=== PATIENT | female | born 1985 | race African-American/Black ===

== ENCOUNTER 2023-04-27 05:36 | Inpatient (IN) | payer BC, OTHER ==
[2023-04-27] MEDS ORDERED: Tranexamic Acid 1,000 MG/10 ML VIAL IVP PRN (06:59)
[2023-04-27] MEDS ORDERED: Butorphanol Tartrate 1 MG/ML VIAL SLOW IVP PRN (06:59)
[2023-04-27] MEDS ORDERED: Acetaminophen 500 MG TAB PO PRN (06:59)
[2023-04-27] MEDS ORDERED: Ibuprofen 800 MG TAB PO PRN (06:59)
[2023-04-27] MEDS ORDERED: Methylergonovine 0.2 MG/ML VIAL IM PRN (06:59)
[2023-04-27] MEDS ORDERED: Carboprost 250 MCG/ML AMP IM PRN (06:59)
[2023-04-27] MEDS ORDERED: HYDROcodone/Acetaminophen 5/325 mg Tablet PO PRN ×2 (06:59)
[2023-04-27] MEDS ORDERED: hydrALAZINE 20 MG/ML VIAL SLOW IVP PRN (06:59)
[2023-04-27] MEDS ORDERED: Promethazine HCl 25 MG/ML VIAL IM PRN (06:59)
[2023-04-27] MEDS ORDERED: Lidocaine 1% (PF) 30 ML VIAL SC PRN (06:59)
[2023-04-27] MEDS ORDERED: Misoprostol 200 MCG TAB PR PRN (06:59)
[2023-04-27] MEDS ORDERED: Diphenoxylate HCl/Atropine Tablet PO PRN ×2 (06:59)
[2023-04-27] MEDS ORDERED: Ondansetron PF 4 MG/2 ML Vial IVP PRN (06:59)
[2023-04-27] MEDS ORDERED: NS w/ Oxytocin 30 units 500 ML IV SCH ×3 (07:00)
[2023-04-27 08:19] LABS: Hemoglobin 10.7 g/dL (12.0-15.5); Mean Corpuscular HGB CONC 33.3 g/dL (32.0-36.0); Mean Corpuscular Hemoglobin 29.2 pg (27.0-33.0); Mean Corpuscular Volume 87.5 fl (81.6-98.3); Mean Platelet Volume 10.5 fl (7.4-10.4); Platelet Count 295 10x3/uL (150-450); Red Blood Cell (RBC) Count 3.67 10x6/uL (3.90-5.03); White Blood Cell (WBC) Count 5.1 10x3/uL (3.5-10.5)
[2023-04-27 08:47] LABS: HBSAg Index 0.14 S/CO (0-0.99); Hep B Surf Ag - L&D Non-Reactive S/CO (NonReactive)
[2023-04-27 08:48] LABS: Syphilis Antibody Nonreactive (Nonreactive); Syphilis Antibody Index 0.04 S/CO (<1.00 Non-Reactive)
[2023-04-27] MEDS ORDERED: Bupivacaine 0.25% HCL 30 ML VIAL ONE (13:54)
[2023-04-27] MEDS: fentaNYL 50 mcg/mL 1 mL Vial SLOW IVP PRN ×2 (19:03→22:02)
[2023-04-27 19:39] VITALS: BMI 38.2
[2023-04-27] MEDS: Misoprostol 100 MCG TAB VAG SCH (19:42)
[2023-04-27] MEDS: Lactated Ringer's 1,000 ML IV SCH (19:42)
[2023-04-27] MEDS ORDERED: Terbutaline Sulfate 1 MG/ML VIAL SC SCH (23:45)
[2023-04-27] MEDS ORDERED: Terbutaline Sulfate 1 MG/ML VIAL ONE (23:48)
[2023-04-28] MEDS ORDERED: fentaNYL/Ropivacaine Epidural 100 ML ONE (01:52)
[2023-04-28] MEDS ORDERED: ePHEDrine Sulfate 50 MG/10 ML VIAL SLOW IVP PRN (02:32)
[2023-04-28] MEDS ORDERED: Promethazine HCl 25 MG/ML VIAL IM PRN ×2 (02:32→05:54)
[2023-04-28] MEDS ORDERED: Moisturizing Cream (Eucerin) 113 GM JAR TOP PRN (02:32)
[2023-04-28] MEDS ORDERED: diphenhydrAMINE 50 MG/ML VIAL IVP PRN (02:32)
[2023-04-28] MEDS ORDERED: Lactated Ringer's 500 ML IV PRN (02:32)
[2023-04-28] MEDS ORDERED: Ondansetron PF 4 MG/2 ML Vial IVP PRN ×2 (02:32→05:54)
[2023-04-28] MEDS ORDERED: Acetaminophen 325 MG TAB PO PRN (02:32)
[2023-04-28] MEDS ORDERED: Naloxone HCl 0.4 mg/ml Vial IVP PRN ×2 (02:32)
[2023-04-28] MEDS: Misoprostol 100 MCG TAB VAG SCH ×2 (02:41→05:53)
[2023-04-28] MEDS: Lactated Ringer's 1,000 ML IV SCH (02:42)
[2023-04-28] MEDS ORDERED: Communication Order-Pharmacy FS SCH (02:45)
[2023-04-28] MEDS ORDERED: fentaNYL 2 mcg/Ropivacaine 0.2% Epidural 100 ML CADD EPIDURAL SCH (02:45)
[2023-04-28] MEDS ORDERED: Misoprostol 200 MCG TAB ONE (03:33)
[2023-04-28] MEDS ORDERED: Misoprostol 100 MCG TAB ONE (03:33)
[2023-04-28] MEDS ORDERED: Lanolin Ointment 7 GM TUBE TOP PRN (05:54)
[2023-04-28] MEDS ORDERED: Methylergonovine 0.2 MG/ML VIAL IM PRN (05:54)
[2023-04-28] MEDS ORDERED: Boostrix 0.5 ML (Tdap) VIAL (>/=7 yrs of age) IM ONE (05:54)
[2023-04-28] MEDS ORDERED: HYDROcodone/Acetaminophen 5/325 mg Tablet PO PRN (05:54)
[2023-04-28] MEDS ORDERED: Bisacodyl 10 MG SUPP PR PRN (05:54)
[2023-04-28] MEDS ORDERED: Measles/Mumps/Rubella 10 MCG/0.5 ML VIAL SC ONE (05:54)
[2023-04-28] MEDS ORDERED: Zolpidem Tartrate 5 MG TAB PO PRN (05:54)
[2023-04-28] MEDS ORDERED: Misoprostol 200 MCG TAB VAG PRN (05:54)
[2023-04-28] MEDS ORDERED: diphenhydrAMINE 25 MG CAP PO PRN (05:54)
[2023-04-28] MEDS ORDERED: Benzocaine-Menthol 82.5 ML CAN TOP PRN (05:54)
[2023-04-28] MEDS ORDERED: hydrALAZINE 20 MG/ML VIAL SLOW IVP PRN (05:54)
[2023-04-28] MEDS ORDERED: Preparation H Ointment 28 GM TUBE PR PRN (05:54)
[2023-04-28] MEDS ORDERED: Varicella virus, LIVE 0.5 ML VIAL SC ONE (05:54)
[2023-04-28] MEDS ORDERED: Milk Of Magnesia 30 ML UDCUP PO PRN (05:54)
[2023-04-28] MEDS ORDERED: NS w/ Oxytocin 30 units 500 ML IV SCH (06:00)
[2023-04-28] MEDS: Prenatal Vitamin 1 TAB PO SCH (09:15)
[2023-04-28] MEDS: Docusate 100 MG CAP PO SCH ×2 (09:15→21:22)
[2023-04-28] MEDS: HYDROcodone/Acetaminophen 5/325 mg Tablet PO PRN ×4 (09:15→23:33)
[2023-04-28] MEDS: Ferrous Sulfate 325 MG TAB PO SCH ×2 (09:44→09:46)
[2023-04-28] MEDS: Ibuprofen 800 MG TAB PO SCH ×3 (09:44→21:22)
[2023-04-29] MEDS: Ibuprofen 800 MG TAB PO SCH (04:30)
[2023-04-29 06:06] LABS: Mean Corpuscular HGB CONC 32.9 g/dL (32.0-36.0); Mean Corpuscular Volume 88.1 fl (81.6-98.3); Mean Platelet Volume 10.1 fl (7.4-10.4); Platelet Count 267 10x3/uL (150-450); RBC Distribution Width 13.1 % (11.5-14.5); Red Blood Cell (RBC) Count 3.45 10x6/uL (3.90-5.03); White Blood Cell (WBC) Count 9.3 10x3/uL (3.5-10.5)
[2023-04-29] MEDS: Prenatal Vitamin 1 TAB PO SCH (08:29)
[2023-04-29] MEDS: Docusate 100 MG CAP PO SCH (08:29)
[2023-04-29 10:10] VITALS: BP 103/70; TEMP 97.9
== END 2023-04-29 10:25 | disposition home or self-care (01) | DRG 807 ==
LOC: CSHLD 05:36 → CSHPP 04-28 08:05
PROVIDERS: ADMIT Obstetrics & Gynecology; ATTEND Obstetrics & Gynecology
PROC: 10D07Z3 Extraction of Products of Conception, Low Forceps, Via Natural or Artificial Opening (ICD-10-PCS; principal; 2023-04-28)
DX: O42.02 Full-term premature rupture of membranes, onset of labor within 24 hours of rupture (principal); Z37.0 Single live birth; Z3A.39 39 weeks gestation of pregnancy; O76 Abnormality in fetal heart rate and rhythm complicating labor and delivery; O69.81X0 Labor and delivery complicated by cord around neck, without compression, not applicable or unspecified; O32.8XX0 Maternal care for other malpresentation of fetus, not applicable or unspecified
CPT/HCPCS: 36415; 85027; 86780; 86850; 86900; 86901; 87340; J3010; S0020